=== PATIENT | female | born 1935 | race Caucasian/White ===

== ENCOUNTER 2016-10-10 11:00 | Observation (INO) | payer OTHER ==
[~2016-10-10] VITALS: Ht 157.5 cm; Wt 61.0 kg
[~2016-10-10 11:00] MED LIST: AMBIEN5 MG PO; ASPIR-LOW81 MG PO; Aspirin E.C. PO; BUSPAR7.5 MG PO; CELEXA20 MG PO; CITALOPRAM HBR10 MG PO; CRESTOR10 MG PO; DELTASONE10 MG PO; ERYTHROMYC1 APPLICAT BOTH EYES; GLUCOPHAGE500 MG PO; GUMMI BEAR MUL1 EACH PO; HYDROCHLOROTHIA25 MG PO; Hydrodiuril,Oretic,E PO; IMDUR30 MG PO; ISOSORBIDE MONO30 MG PO; LASIX20 MG PO; LEXAPRO10 MG PO; LIPITOR20 MG PO; LISINOPRIL10 MG PO; LISINOPRIL20 MG PO; LOPRESSOR25 MG PO; METFORMIN HCL500 MG PO; METOPROLOL; METOPROLOL SUCC25 MG PO; METOPROLOL TART25 MG PO; MULTI-DAY VITA1 EACH PO; MULTIVITAMIN1 EAC2 PO; NORVASC10 MG PO; OMEPRAZOLE10 M1 PO; PANTOPRAZOLE SO40 MG PO; PHENERGAN25 MG PR; PRAVASTATIN SOD80 MG PO; PRILOSEC40 MG PO; PROCARDIA XL90 MG PO; PROTONIX40 MG PO; TYLENOL EXTRA500 MG PO; Vancocin Oral Soluti PO; Vibramycin, Doryx PO; XANAX0.25 MG PO; XANAX0.5 MG PO; ZESTRIL10 MG PO; ZESTRIL20 MG PO; ZOCOR20 MG PO; ZOFRAN ODT4 MG PO
[2016-10-10 12:25] LABS: HEMATOCRIT 35.5 % (36.0-46.0); MCH 29.1 PG (29.0-34.0); MCHC 32.1 G/DL (30.0-36.0); MCV 90.6 FL (83-99); MEAN PLAT.VOLUME 9.7 uM^3 (9.5-12.4); PLATELET COUNT 198 K/uL (156-360); RBC DIS.WIDTH-CV 14.3 % (11.8-14.6); RBC DIS.WIDTH-SD 47.8 % (39-53); RED BLOOD COUNT 3.92 M/uL (3.80-5.20)
[2016-10-10 12:43] LABS: CHLORIDE 109 mEq/L (99-109); POTASSIUM 4.8 mEq/L (3.7-5.4); SODIUM 139 mEq/L (136-147)
[2016-10-10 12:45] LABS: GLUCOSE 97 mg/dL (70-99)
[2016-10-10 12:46] LABS: TROP-I INTERPRETATION NEGATIVE; TROPONIN-I 0.01 ng/mL (0.0-0.30)
[2016-10-10 12:47] LABS: ANION GAP 12 MEQ/L (2-14)
[2016-10-10 12:49] LABS: GFR ESTIMATE (CALCULATED) 36 mL/min/
[2016-10-10 12:50] LABS: UREA NITROGEN (BUN) 28 mg/dL (9-23)
[2016-10-10 16:43] LABS: ADD MIUA? NO; BILIRUBIN NEGATIVE; BLOOD NEGATIVE; COLOR YELLOW ((YELLOW)); GLUCOSE (STRIP) NEGATIVE; KETONES NEGATIVE; LEUKOCYTES NEGATIVE; NITRITE NEGATIVE; PROTEIN (STRIP) NEGATIVE; SPECIFIC GRAVITY 1.012 (1.000-1.030); UROBILINOGEN 0.2 MG/DL (0.2-1.0)
[2016-10-10 21:16] VITALS: BP 128/60
[2016-10-10] MEDS ORDERED: ISOSORBIDE MONO30 MG PO (21:32)
[2016-10-10 23:26] VITALS: BP 120/58
[2016-10-11 00:58] LABS: TROP-I INTERPRETATION NEGATIVE; TROPONIN-I < 0.01 ng/mL (0.0-0.30)
[2016-10-11 04:12] VITALS: BP 103/53
[2016-10-11 07:56] VITALS: BP 132/60
[2016-10-11 07:59] LABS: HEMATOCRIT 33.5 % (36.0-46.0); MCH 28.8 PG (29.0-34.0); MCHC 31.3 G/DL (30.0-36.0); MEAN PLAT.VOLUME 9.6 uM^3 (9.5-12.4); PLATELET COUNT 166 K/uL (156-360); RBC DIS.WIDTH-CV 14.2 % (11.8-14.6); RBC DIS.WIDTH-SD 47.8 % (39-53); RED BLOOD COUNT 3.64 M/uL (3.80-5.20); WHITE BLOOD COUNT 4.8 K/uL (4.1-10.2)
[2016-10-11 08:15] LABS: ANION GAP 5 MEQ/L (2-14); CHLORIDE 111 MEQ/L (99-109); GFR ESTIMATE (CALCULATED) 42 mL/min/; GLUCOSE 91 mg/dL (70-99); POTASSIUM 4.7 MEQ/L (3.7-5.4); SAMPLE HEMOLYSIS CHECK 0; SAMPLE ICTERIC CHECK 0; SAMPLE LIPEMIA CHECK 0; SODIUM 140 MEQ/L (136-147); UREA NITROGEN (BUN) 21 mg/dL (9-23)
[2016-10-11 08:44] LABS: TROP-I INTERPRETATION NEGATIVE; TROPONIN-I < 0.01 ng/mL (0.0-0.30)
[2016-10-11 12:00] VITALS: BP 128/60
[2016-10-11 15:18] VITALS: BP 110/53
[2016-10-11 19:00] VITALS: BP 104/57
[2016-10-12 01:27] VITALS: BP 134/58
[2016-10-12 04:13] VITALS: BP 136/58
[2016-10-12 07:45] VITALS: BP 155/70
[2016-10-12 11:35] LABS: TREPONEMA ANTIBODY NEGATIVE (NEGATIVE)
[2016-10-12 12:12] VITALS: BP 130/67
[2016-10-12] MEDS ORDERED: SUCRALFATE1 GM PO (13:13)
[2016-10-12] MEDS ORDERED: PROTONIX40 MG PO (13:13)
== END 2016-10-12 15:32 | disposition home or self-care (01) ==
LOC: EME 11:00 → RME 11:00 → EDOF 19:54 → 5WEST 19:54
PROVIDERS: Hospitalist; Internal Medicine; Nurse Practitioner Family
DX: R07.89 Other chest pain (principal); N17.9 Acute kidney failure, unspecified; I25.10 Atherosclerotic heart disease of native coronary artery without angina pectoris; R10.13 Epigastric pain; R41.0 Disorientation, unspecified; R42 Dizziness and giddiness; G89.29 Other chronic pain; E11.9 Type 2 diabetes mellitus without complications; I10 Essential (primary) hypertension; K21.9 Gastro-esophageal reflux disease without esophagitis; F32.9 Major depressive disorder, single episode, unspecified; R00.1 Bradycardia, unspecified; K44.9 Diaphragmatic hernia without obstruction or gangrene
CPT/HCPCS: 70450; 71020; 80048; 81003; 82607; 82746; 84443; 84484; 85027; 86780; 93005; 99281; 99285; G0378; G8978 GP CJ; G8979 GP CI; G8980 CJ; G8987 GO CJ; G8988 CI; G8989 GO CI; J1644; J2405; J7030

== ENCOUNTER 2016-11-02 14:43 | Emergency (ER) | payer OTHER ==
[~2016-11-02] VITALS: Ht 157.5 cm; Wt 59.0 kg
[~2016-11-02 14:43] MED LIST changes: +SUCRALFATE1 GM PO
[2016-11-02 16:13] LABS: HEMATOCRIT 39.9 % (36.0-46.0); MCH 29.3 PG (29.0-34.0); MCHC 32.8 G/DL (30.0-36.0); MCV 89.3 FL (83-99); MEAN PLAT.VOLUME 9.6 uM^3 (9.5-12.4); PLATELET COUNT 177 K/uL (156-360); RBC DIS.WIDTH-CV 13.3 % (11.8-14.6); RBC DIS.WIDTH-SD 43.9 % (39-53); RED BLOOD COUNT 4.47 M/uL (3.80-5.20); WHITE BLOOD COUNT 5.8 K/uL (4.1-10.2)
[2016-11-02 16:25] LABS: CHLORIDE 106 mEq/L (99-109); SODIUM 141 mEq/L (136-147)
[2016-11-02 16:26] LABS: GLUCOSE 107 mg/dL (70-99)
[2016-11-02 16:28] LABS: ANION GAP 10 MEQ/L (2-14)
[2016-11-02 16:30] LABS: GFR ESTIMATE (CALCULATED) 46 mL/min/
[2016-11-02 16:31] LABS: UREA NITROGEN (BUN) 20 mg/dL (9-23)
[2016-11-02 16:34] LABS: TROP-I INTERPRETATION NEGATIVE; TROPONIN-I < 0.01 ng/mL (0.0-0.30)
[2016-11-02 16:49] LABS: ADD MIUA? YES; BILIRUBIN NEGATIVE; BLOOD SMALL; COLOR COLORLESS ((YELLOW)); GLUCOSE (STRIP) NEGATIVE; KETONES NEGATIVE; LEUKOCYTES SMALL; NITRITE NEGATIVE; PROTEIN (STRIP) NEGATIVE; SPECIFIC GRAVITY 1.005 (1.000-1.030); UROBILINOGEN 0.2 MG/DL (0.2-1.0)
[2016-11-02 16:59] LABS: BACTERIA RARE /HPF; EPITHELIAL CELLS RARE /HPF; MUCUS NONE SEEN /LPF; RED BLOOD CELLS 0-5 /HPF (0-5); UCUL ADDED? NO; WHITE BLOOD CELLS 0-5 /HPF (0-5)
[2016-11-02 21:30] VITALS: BP 166/86
== END 2016-11-02 21:30 | disposition home or self-care (01) ==
LOC: EME 14:43
PROVIDERS: Emergency Medicine
DX: I10 Essential (primary) hypertension (principal); K21.9 Gastro-esophageal reflux disease without esophagitis; E11.9 Type 2 diabetes mellitus without complications; F32.9 Major depressive disorder, single episode, unspecified; G89.29 Other chronic pain; M54.9 Dorsalgia, unspecified
CPT/HCPCS: 70450; 71020; 80048; 81003; 84484; 85027; 93005; 99281; 99285

== ENCOUNTER 2017-02-05 13:23 | Emergency (ER) | payer OTHER ==
[~2017-02-05] VITALS: Ht 157.5 cm; Wt 59.2 kg
[2017-02-05 16:00] LABS: HEMATOCRIT 39.4 % (36.0-46.0); MCH 29.2 PG (29.0-34.0); MCHC 32.5 G/DL (30.0-36.0); MEAN PLAT.VOLUME 9.4 uM^3 (9.5-12.4); PLATELET COUNT 158 K/uL (156-360); RBC DIS.WIDTH-CV 15.5 % (11.8-14.6); RBC DIS.WIDTH-SD 51.5 % (39-53); RED BLOOD COUNT 4.38 M/uL (3.80-5.20); WHITE BLOOD COUNT 5.8 K/uL (4.1-10.2)
[2017-02-05 16:10] LABS: CHLORIDE 107 mEq/L (99-109); POTASSIUM 4.8 mEq/L (3.7-5.4); SODIUM 142 mEq/L (136-147)
[2017-02-05 16:12] LABS: GLUCOSE 110 mg/dL (70-99)
[2017-02-05 16:13] LABS: ANION GAP 12 MEQ/L (2-14)
[2017-02-05 16:16] LABS: GFR ESTIMATE (CALCULATED) 42 mL/min/
[2017-02-05 16:17] LABS: UREA NITROGEN (BUN) 20 mg/dL (9-23)
[2017-02-05 16:23] LABS: TROP-I INTERPRETATION NEGATIVE; TROPONIN-I < 0.01 ng/mL (0.0-0.30)
[2017-02-05 18:25] VITALS: BP 138/51
== END 2017-02-05 18:26 | disposition home or self-care (01) ==
LOC: EME 13:23
PROVIDERS: Emergency Medicine
DX: Z04.1 Encounter for examination and observation following transport accident (principal); R41.82 Altered mental status, unspecified; V47.0XXA Car driver injured in collision with fixed or stationary object in nontraffic accident, initial encounter; I10 Essential (primary) hypertension; E11.9 Type 2 diabetes mellitus without complications; K21.9 Gastro-esophageal reflux disease without esophagitis; Z79.82 Long term (current) use of aspirin
CPT/HCPCS: 70450; 80048; 84484; 85027; 93005; 99281; 99284